=== PATIENT | male | born 1970 | race Hispanic/Latino ===

== ENCOUNTER 2016-12-11 09:00 | Emergency (ER) | payer MEDICAID ==
[2016-12-11 09:12] VITALS: BP 134/91
--- NOTE | 2016-12-11 11:51 | Emergency Department Report ---
HPI - General Chief Complaint: Skin/Abscess/Foreign Body Time Seen by Provider: 12/11/16 11:35 - HPI HPI: 46-year-old male presents to ED complaining of pain and swelling in his left nostril area 5 days. Patient states he noticed a small bump in his left nostril on . Patient states started and started a bomb got bigger and painful to touch and noticed some redness on it. Patient denies any fever/ chills/nausea/vomiting/abdominal pain/headache/cough/runny nose/nosebleed/ shortness of breath or chest pain or abdominal pain. ED Past Medical Hx - Past Medical History Hx Hypertension: Yes Hx Congestive Heart Failure: Yes Hx Diabetes: No Hx Asthma: No Hx COPD: Yes Hx HIV: No - Surgical History Hx Internal Defibrillator: Yes Hx Appendectomy: Yes Additional Surgical History: aortic valve replacment 03/23/14 - Social History Smoking Status: Current Every Day Smoker Substance Use Type: None - Medications Home Medications: Home Medications Medication Instructions Recorded Confirmed Last Taken Type Aspirin [Aspirin BABY CHEW TAB] 81 mg PO DAILY 03/30/14 11/13/16 11/13/16 History Amiodarone [Cordarone 200 MG TAB] 200 mg PO BID 11/13/16 11/13/16 11/13/16 History Furosemide [Lasix TAB] 40 mg PO QDAY 11/13/16 11/13/16 11/13/16 History Lisinopril [Zestril TAB] 5 mg PO QDAY 11/13/16 11/13/16 11/13/16 History Metoprolol [Lopressor TAB] 100 mg PO DAILY 11/13/16 11/13/16 11/13/16 History Potassium Chloride [Klor-Con 8] 8 meq PO DAILY 11/13/16 11/13/16 11/13/16 History HYDROcodone/APAP 5-325 [[place] 1 each PO Q4H PRN #10 tablet 11/16/16 Unknown Rx 5-325 mg TAB] Levofloxacin [Levaquin TAB] 500 mg PO QDAY #5 tablet 11/16/16 Unknown Rx metroNIDAZOLE [Flagyl] 500 mg PO Q12HR #10 tab 11/16/16 Unknown Rx Acetaminophen/Codeine [Tylenol 1 tab PO Q6H #10 tablet 12/11/16 Unknown Rx /Codeine # 3 tab] Cephalexin [Keflex] 500 mg PO Q12HR #14 cap 12/11/16 Unknown Rx ED Review of Systems ROS: Stated complaint: ABSCESS IN NOSE Other details as noted in HPI Constitutional: denies: chills, fever Eyes: denies: eye pain, eye discharge, vision change ENT: denies: ear pain, throat pain Respiratory: denies: cough, shortness of breath, wheezing Cardiovascular: denies: chest pain, palpitations Endocrine: no symptoms reported Gastrointestinal: denies: abdominal pain, nausea, vomiting, diarrhea, constipation, hematochezia Genitourinary: denies: urgency, dysuria, frequency, hematuria Musculoskeletal: denies: back pain, joint swelling, arthralgia Skin: denies: rash, lesions Neurological: denies: headache, weakness, paresthesias Psychiatric: denies: anxiety, depression Hematological/Lymphatic: denies: easy bleeding, easy bruising Physical Exam - Physical Exam Vital Signs: Vital Signs 12/11/16 09:09 Temperature 97.6 F Pulse Rate 85 Respiratory 17 Rate Blood Pressure 134/91 O2 Sat by Pulse 100 Oximetry Physical Exam: GENERAL: Alert and oriented x3, no apparent distress, Normal Gait, atraumatic. HEAD: Head is normocephalic and a-traumatic. EYES: Extra ocular muscles are intact. Pupils are equal, round, and reactive to light and accommodation. EARS: symetrical, atraumatic, non tender, ear canal clear and moderate cerumen, tympanic membrance non inflamed. gross auditory nml bilaterally. NOSE: Nose symetrical, Nontender,Nares appeared normal. Small erythematous bump below the left nostril between the upper lip and the nostril. Tender to palpation. Mild edema. No active drainage. MOUTH:Mouth is well hydrated and without lesions. Tonsils nonerythematous or swollen, Uvula midline, Tongue not elevated. Mucous membranes are moist. Posterior pharynx clear, no exudate or lesions. Patent airways. No dental tenderness NECK: Supple. Non edematous, No carotid bruits. No lymphadenopathy or thyromegaly. No C-spine tenderness LUNGS: Symetrical with respiration, No wheezing, no rales or crackles, CTAB. HEART: S1, S2 present, regular rate and rhythm without murmur, no rubs, no gallops. ABDOMEN: No organomegaly was noted,Positive bowel sounds, soft, and non- distended. . Nontender to palpation on all Quadrants, NO CVA tenderness. SKIN: Warm and dry, No lesions, No ulceration or induration present. ED Course Vital Signs 12/11/16 09:09 Temperature 97.6 F Pulse Rate 85 Respiratory 17 Rate Blood Pressure 134/91 O2 Sat by Pulse 100 Oximetry ED Medical Decision Making - Medical Decision Making 46-year-old male presents with cellulitis of the upper lid. ED course: Patient received Tylenol 3 ED. Discussed the patient did take medication antibiotic therapy as prescribed. he should take medication at home for pain. Discussed the patient follow up with primary care physician a 3-5 days. Vital signs are normal patient is in no acute distress. Patient verbally states he understands and will comply to follow-up. Critical care attestation.: If time is entered above; I have spent that time in minutes in the direct care of this critically ill patient, excluding procedure time. ED Disposition Clinical Impression: Cellulitis of nostril Cellulitis Qualifiers: Site of cellulitis: face Qualified Code(s): L03.211 - Cellulitis of face Disposition: DISCHARGED TO HOME OR SELFCARE Is pt being admited?: No Does the pt Need Aspirin: No Condition: Stable Instructions: Cellulitis (ED) Additional Instructions: Apply warm compresses to your cellulitis Take Motrin as initial pain. Follow-up which her primary care physician Prescriptions: Acetaminophen/Codeine [Tylenol /Codeine # 3 tab] 1 tab PO Q6H #10 tablet Cephalexin [Keflex] 500 mg PO Q12HR #14 cap Referrals: PRIMARY CARE, [Primary Care Provider] - 3-5 Days Forms: Accompanied Note, Work/School Release Form(ED) Time of Disposition: 12:07
[2016-12-11] MEDS ORDERED: TYLENOL #3 PO ONE (11:54)
== END 2016-12-11 12:39 | disposition home or self-care (01) ==
LOC: ED 09:00
DX: J34.0 Abscess, furuncle and carbuncle of nose (principal); L03.211 Cellulitis of face; I10 Essential (primary) hypertension; I50.9 Heart failure, unspecified; J44.9 Chronic obstructive pulmonary disease, unspecified; F17.200 Nicotine dependence, unspecified, uncomplicated; Z90.49 Acquired absence of other specified parts of digestive tract; Z79.82 Long term (current) use of aspirin
CPT/HCPCS: 99282

== ENCOUNTER 2017-02-20 03:20 | Emergency (ER) | payer MEDICAID ==
[2017-02-20 03:28] VITALS: BP 122/81
[2017-02-20] MEDS ORDERED: BOOSTRIX IM ONE (04:23)
[2017-02-20] MEDS ORDERED: MOTRIN PO ONE (04:23)
[2017-02-20] MEDS ORDERED: MARCAINE-EPI/PF 0.5%-1:200,000 INFILTRATI ONE (04:23)
--- NOTE | 2017-02-20 04:32 | Emergency Department Report ---
- General Chief complaint: Skin/Abscess/Foreign Body Stated complaint: ABCESS Time Seen by Provider: 02/20/17 04:06 Source: patient Mode of arrival: Ambulatory Limitations: No Limitations - History of Present Illness Initial comments: This is a 46-year-old male well-nourished with nontoxic or ill in appearance that presents to the ED complaining of a boil to the buttock area. Patient stated has these symptoms since Saturday (6 days ago). Associated symptoms includes pain that is described as aching with a level of 10/10. Patient denies any trauma. Denies chest pain, shortness of breath, pus, drainage, nausea, vomiting, fever, chills, stiff neck, headache. Patient denies any allergies. Past history of COPD, CHF, and hypertension. MD complaint: abscess/boil -: Gradual, days(s) (6) Tetanus Up to Date: no (as per patient) Location: buttocks Severity: moderate Severity scale (0 -10): 10 Quality: aching Consistency: constant Improves with: none Worsens with: none Associated symptoms: denies other symptoms Treatments Prior to Arrival: none - Related Data Home Medications Medication Instructions Recorded Confirmed Last Taken Aspirin [Aspirin BABY CHEW TAB] 81 mg PO DAILY 03/30/14 11/13/16 11/13/16 Amiodarone [Cordarone 200 MG TAB] 200 mg PO BID 11/13/16 11/13/16 11/13/16 Furosemide [Lasix TAB] 40 mg PO QDAY 11/13/16 11/13/16 11/13/16 Lisinopril [Zestril TAB] 5 mg PO QDAY 11/13/16 11/13/16 11/13/16 Metoprolol [Lopressor TAB] 100 mg PO DAILY 11/13/16 11/13/16 11/13/16 Potassium Chloride [Klor-Con 8] 8 meq PO DAILY 11/13/16 11/13/16 11/13/16 Previous Rx's Medication Instructions Recorded Last Taken Type HYDROcodone/APAP 5-325 [[place] 1 each PO Q4H PRN #10 tablet 11/16/16 Unknown Rx 5-325 mg TAB] Levofloxacin [Levaquin TAB] 500 mg PO QDAY #5 tablet 11/16/16 Unknown Rx metroNIDAZOLE [Flagyl] 500 mg PO Q12HR #10 tab 11/16/16 Unknown Rx Acetaminophen/Codeine [Tylenol 1 tab PO Q6H #10 tablet 12/11/16 Unknown Rx /Codeine # 3 tab] Cephalexin [Keflex] 500 mg PO Q12HR #14 cap 12/11/16 Unknown Rx Cephalexin [Keflex] 500 mg PO Q8HR 5 Days 02/20/17 Unknown Rx HYDROcodone/APAP 7.5-325 [[place] 1 each PO Q8HR PRN #8 tablet 02/20/17 Unknown Rx 7.5/325] Ibuprofen [Motrin 600 MG tab] 600 mg PO Q8H PRN #20 tablet 02/20/17 Unknown Rx Sulfamethoxazole/Trimethoprim 1 each PO BID 5 Days 02/20/17 Unknown Rx [Bactrim DS TAB] Allergies Allergy/AdvReac Type Severity Reaction Status Date / Time No Known Allergies Allergy Verified 12/11/16 09:12 Abscess Boil HPI - HPI Chief Complaint: Skin/Abscess/Foreign Body Stated Complaint: ABCESS Time Seen by Provider: 02/20/17 04:06 Home Medications: Home Medications Medication Instructions Recorded Confirmed Last Taken Aspirin [Aspirin BABY CHEW TAB] 81 mg PO DAILY 03/30/14 11/13/16 11/13/16 Amiodarone [Cordarone 200 MG TAB] 200 mg PO BID 11/13/16 11/13/16 11/13/16 Furosemide [Lasix TAB] 40 mg PO QDAY 11/13/16 11/13/16 11/13/16 Lisinopril [Zestril TAB] 5 mg PO QDAY 11/13/16 11/13/16 11/13/16 Metoprolol [Lopressor TAB] 100 mg PO DAILY 11/13/16 11/13/16 11/13/16 Potassium Chloride [Klor-Con 8] 8 meq PO DAILY 11/13/16 11/13/16 11/13/16 Previous Rx's Medication Instructions Recorded Last Taken Type HYDROcodone/APAP 5-325 [[place] 1 each PO Q4H PRN #10 tablet 11/16/16 Unknown Rx 5-325 mg TAB] Levofloxacin [Levaquin TAB] 500 mg PO QDAY #5 tablet 11/16/16 Unknown Rx metroNIDAZOLE [Flagyl] 500 mg PO Q12HR #10 tab 11/16/16 Unknown Rx Acetaminophen/Codeine [Tylenol 1 tab PO Q6H #10 tablet 12/11/16 Unknown Rx /Codeine # 3 tab] Cephalexin [Keflex] 500 mg PO Q12HR #14 cap 12/11/16 Unknown Rx Cephalexin [Keflex] 500 mg PO Q8HR 5 Days 02/20/17 Unknown Rx HYDROcodone/APAP 7.5-325 [[place] 1 each PO Q8HR PRN #8 tablet 02/20/17 Unknown Rx 7.5/325] Ibuprofen [Motrin 600 MG tab] 600 mg PO Q8H PRN #20 tablet 02/20/17 Unknown Rx Sulfamethoxazole/Trimethoprim 1 each PO BID 5 Days 02/20/17 Unknown Rx [Bactrim DS TAB] Allergies/Adverse Reactions: Allergies Allergy/AdvReac Type Severity Reaction Status Date / Time No Known Allergies Allergy Verified 12/11/16 09:12 ED Review of Systems ROS: Stated complaint: ABCESS Other details as noted in HPI Constitutional: denies: chills, fever Eyes: denies: eye pain, eye discharge, vision change ENT: denies: ear pain, throat pain Respiratory: denies: cough, shortness of breath, wheezing Cardiovascular: denies: chest pain, palpitations Endocrine: no symptoms reported Gastrointestinal: denies: abdominal pain, nausea, diarrhea Genitourinary: denies: urgency, dysuria Musculoskeletal: denies: back pain, joint swelling, arthralgia Skin: denies: rash, lesions Neurological: denies: headache, weakness, paresthesias Psychiatric: denies: anxiety, depression Hematological/Lymphatic: denies: easy bleeding, easy bruising ED Past Medical Hx - Past Medical History Previous Medical History?: Yes Hx Hypertension: Yes Hx Congestive Heart Failure: Yes Hx Diabetes: No Hx Asthma: No Hx COPD: Yes Hx HIV: No - Surgical History Past Surgical History?: Yes Hx Internal Defibrillator: Yes Hx Appendectomy: Yes Additional Surgical History: aortic valve replacment 03/23/14 - Social History Smoking Status: Current Every Day Smoker Substance Use Type: None - Medications Home Medications: Home Medications Medication Instructions Recorded Confirmed Last Taken Type Aspirin [Aspirin BABY CHEW TAB] 81 mg PO DAILY 03/30/14 11/13/16 11/13/16 History Amiodarone [Cordarone 200 MG TAB] 200 mg PO BID 11/13/16 11/13/16 11/13/16 History Furosemide [Lasix TAB] 40 mg PO QDAY 11/13/16 11/13/16 11/13/16 History Lisinopril [Zestril TAB] 5 mg PO QDAY 11/13/16 11/13/16 11/13/16 History Metoprolol [Lopressor TAB] 100 mg PO DAILY 11/13/16 11/13/16 11/13/16 History Potassium Chloride [Klor-Con 8] 8 meq PO DAILY 11/13/16 11/13/16 11/13/16 History HYDROcodone/APAP 5-325 [[place] 1 each PO Q4H PRN #10 tablet 11/16/16 Unknown Rx 5-325 mg TAB] Levofloxacin [Levaquin TAB] 500 mg PO QDAY #5 tablet 11/16/16 Unknown Rx metroNIDAZOLE [Flagyl] 500 mg PO Q12HR #10 tab 11/16/16 Unknown Rx Acetaminophen/Codeine [Tylenol 1 tab PO Q6H #10 tablet 12/11/16 Unknown Rx /Codeine # 3 tab] Cephalexin [Keflex] 500 mg PO Q12HR #14 cap 12/11/16 Unknown Rx Cephalexin [Keflex] 500 mg PO Q8HR 5 Days 02/20/17 Unknown Rx HYDROcodone/APAP 7.5-325 [[place] 1 each PO Q8HR PRN #8 tablet 02/20/17 Unknown Rx 7.5/325] Ibuprofen [Motrin 600 MG tab] 600 mg PO Q8H PRN #20 tablet 02/20/17 Unknown Rx Sulfamethoxazole/Trimethoprim 1 each PO BID 5 Days 02/20/17 Unknown Rx [Bactrim DS TAB] ED Physical Exam - General Limitations: No Limitations General appearance: alert, in no apparent distress - Head Head exam: Present: atraumatic, normocephalic, normal inspection - Eye Eye exam: Present: normal appearance, PERRL, EOMI. Absent: scleral icterus, conjunctival injection, nystagmus, periorbital swelling, periorbital tenderness Pupils: Present: normal accommodation - ENT ENT exam: Present: normal exam, normal orophraynx, mucous membranes moist, TM's normal bilaterally, normal external ear exam - Neck Neck exam: Present: normal inspection, full ROM. Absent: tenderness, meningismus, lymphadenopathy, thyromegaly - Respiratory Respiratory exam: Present: normal lung sounds bilaterally. Absent: respiratory distress, wheezes, rales, rhonchi, stridor, chest wall tenderness, accessory muscle use, decreased breath sounds, prolonged expiratory - Cardiovascular Cardiovascular Exam: Present: regular rate, normal rhythm, normal heart sounds. Absent: bradycardia, tachycardia, irregular rhythm, systolic murmur, diastolic murmur, rubs, gallop - GI/Abdominal GI/Abdominal exam: Present: soft, normal bowel sounds. Absent: distended, tenderness, guarding, rebound, rigid, diminished bowel sounds - Rectal Rectal exam: Present: deferred - Extremities Exam Extremities exam: Present: normal inspection, full ROM, normal capillary refill. Absent: tenderness, pedal edema, joint swelling, calf tenderness - Back Exam Back exam: Present: normal inspection, full ROM. Absent: tenderness, CVA tenderness (R), CVA tenderness (L), muscle spasm, paraspinal tenderness, vertebral tenderness, rash noted - Neurological Exam Neurological exam: Present: alert, oriented X3, CN II-XII intact, normal gait, reflexes normal - Psychiatric Psychiatric exam: Present: normal affect, normal mood - Skin Skin exam: Present: warm, dry, intact, normal color. Absent: rash - Other Other exam information: 3 cm abscess to upper left buttock area. Tender to touch. Fluctuance present. No pus or drainage noted. No surrounding erythema or surrounding cellulitis. ED Course Vital Signs 02/20/17 03:25 Temperature 97.7 F Pulse Rate 89 Blood Pressure 122/81 O2 Sat by Pulse 98 Oximetry - Reevaluation(s) Reevaluation #1: 02/20/17 04:33 Patient is talking in full sentences with no signs of distress noted. - I & D Left Medial Buttocks Type of Procedure: Complex Site: left medial buttock region Blade Size: 11 I & D Procedure: betadine prep, sterile drapes applied, sterile dressing applied Progress: Under sterile procedure, I used Betadine to cleanse the area. I then used 4 x 4 to try and clean the area. I used 25-gauge 5/8 hypo-to inject 0.5% Marcaine with epi 1-200,000 with total volume of 6 mL. I then used Betadine again cleansed area. I then used an 11 blade to make a decision of 1 cm to the site. About 1 mL of purulent drainage noted. I then used a hemostat to break down the abscess. I used 0.9% saline to flush the area with a total cc of 20. I then used one fourth iodoform packing. A sterile 4 x 4 with tape has in place as dressing. Patient's are well with no acute signs of distress or complications noted. ED Medical Decision Making - Medical Decision Making Patient was examined myself. Patient tolerated I&D with no signs of distress noted. Packing has been placed. Patient was instructed to return in 48 hours for packing removal and reassessment of the wound. Patient will be treated with Keflex and Bactrim at discharge. Patient was instructed to return to follow-up with the primary care doctor in 3-5 days or if symptoms such as increased swelling, pain, or worsening symptoms return to emergency room as was possible. Critical care attestation.: If time is entered above; I have spent that time in minutes in the direct care of this critically ill patient, excluding procedure time. ED Disposition Clinical Impression: Abscess Disposition: TO HOME OR SELFCARE Is pt being admited?: No Does the pt Need Aspirin: No Condition: Stable Instructions: Cephalexin (By mouth), Ibuprofen (By mouth), Abscess Incision and Drainage (ED), Acute Wound Care (ED), Abscess (ED) Additional Instructions: follow-up with the primary care doctor in 3-5 days or if symptoms such as increased swelling, pain, or worsening symptoms return to emergency room as was possible. Return in 48 hours for packing removal and reassessment of wound. Take full course of antibiotics as prescribed. If pain is not relieved with ibuprofen may take [place] as prescribed. Do not operate any machinery while taking [place] due to sedation/drowsiness. Prescriptions: Cephalexin [Keflex] 500 mg PO Q8HR 5 Days HYDROcodone/APAP 7.5-325 [[place] 7.5/325] 1 each PO Q8HR PRN #8 tablet PRN Reason: Pain Ibuprofen [Motrin 600 MG tab] 600 mg PO Q8H PRN #20 tablet PRN Reason: Pain Sulfamethoxazole/Trimethoprim [Bactrim DS TAB] 1 each PO BID 5 Days Referrals: PRIMARY CARE, [Primary Care Provider] - 3-5 Days JOSE CONNOR JR, MD [Staff Physician] - 3-5 Days [facility] [Outside] - 3-5 Days [facility] [place] [Outside] - 3-5 Days Forms: Work/School Release Form(ED)
[2017-02-20] MEDS ORDERED: MARCAINE 0.5% INFILTRATI ONE (05:36)
== END 2017-02-20 06:18 | disposition home or self-care (01) ==
LOC: ED 03:20
DX: L02.31 Cutaneous abscess of buttock (principal); I11.0 Hypertensive heart disease with heart failure; I50.9 Heart failure, unspecified; J44.9 Chronic obstructive pulmonary disease, unspecified; F17.210 Nicotine dependence, cigarettes, uncomplicated; Z79.82 Long term (current) use of aspirin; Z95.0 Presence of cardiac pacemaker
CPT/HCPCS: 90471; 90715; 99282

== ENCOUNTER 2018-05-08 10:19 | Emergency (ER) | payer MEDICAID ==
--- NOTE | 2018-05-08 10:59 | XRay Report ---
ROUTINE CHEST, TWO VIEWS: HISTORY: Shortness of breath. Cardiac surgery changes and single lead pacemaker device are unchanged. Heart size and pulmonary vascularity are within normal limits. There is pleural thickening or loculated fluid near the apex of the right lung measuring up to 1.7 cm in thickness. This is unchanged since 04/20/18. No evidence for pneumonia or pneumothorax. IMPRESSION: No acute cardiopulmonary process identified. Loculated fluid or chronic pleural thickening at the right apex which is unchanged.
[2018-05-08] MEDS ORDERED: SOLU-Medrol IV ONE (11:06)
[2018-05-08] MEDS ORDERED: LEVAQUIN 750MG/150ML 750 MG/150 ML BAG IV ONE (11:06)
[2018-05-08] MEDS ORDERED: ATROVENT IH ONE (11:06)
[2018-05-08] MEDS ORDERED: PROVENTIL IH ONE (11:06)
[2018-05-08 11:07] LABS: Basophils # (Auto) 0.1 K/mm3 (0.0-0.1); Eosinophils # (Auto) 0.5 K/mm3 (0.0-0.4); Eosinophils % (Auto) 6.8 % (0.0-4.3); Hematocrit 50.6 % (35.5-45.6); Hemoglobin 16.9 gm/dl (11.8-15.2); Lymphocytes # (Auto) 2.4 K/mm3 (1.2-5.4); Lymphocytes % (Auto) 32.1 % (13.4-35.0); Mean Corpuscular HGB Conc 34 % (32-34); Mean Corpuscular Hemoglobin 29 pg (28-32); Mean Corpuscular Volume 86 fl (84-94); Monocytes # (Auto) 0.8 K/mm3 (0.0-0.8); Monocytes % (Auto) 10.5 % (0.0-7.3); Platelet Count 335 K/mm3 (140-440); Red Cell Distribution Width 14.5 % (13.2-15.2)
[2018-05-08 11:17] LABS: INR 1.04 (0.87-1.13)
--- NOTE | 2018-05-08 11:18 | Emergency Department Report ---
ED Shortness of Breath HPI - General Chief Complaint: Dyspnea/Respdistress Stated Complaint: SOB Time Seen by Provider: 05/08/18 10:43 Source: patient, family Mode of arrival: Ambulatory Limitations: No Limitations - History of Present Illness Initial Comments: 47-year-old male with past medical history emphysema, CHF, COPD, hypertension, AICD, and aortic valve replacement in 2013 presents to the Hospital complains of cough, shortness of breath, and generalized weakness progressive worsening since May 05. Patient with treatment here early April and discharged on 04/21 for bilateral pneumonia, emphysema, and presented with altered mental status and shortness of breath requiring intubation. Patient was feeling good until he cleaned his mold containing back porch prior to symptom onset. Cough is productive of yellow sputum. No fever, calf tenderness, or leg edema or cording. Patient complains of chest pain with breathing. He went to Dr. Rebolledo's office (molded goods operator) prior to arrival and was sent to the ER based on his symptoms and without M.D. evaluation. Despite having COPD patient denies home oxygen use, neck, or inhaler treatment. - Related Data Home Medications Medication Instructions Recorded Confirmed Last Taken Aspirin [Aspirin BABY CHEW TAB] 81 mg PO DAILY 03/30/14 05/08/18 1 Week Ago ~05/01/18 Furosemide [Lasix TAB] 40 mg PO QDAY 11/13/16 05/08/18 1 Week Ago ~05/01/18 Lisinopril [Zestril TAB] 10 mg PO QDAY 11/13/16 05/08/18 1 Week Ago ~05/01/18 Potassium Chloride [Klor-Con 8] 8 meq PO DAILY 11/13/16 05/08/18 1 Week Ago ~05/01/18 Previous Rx's Medication Instructions Recorded Last Taken Type levoFLOXacin [Levaquin] 750 mg PO QDAY #7 tablet 04/21/18 1 Week Ago Rx ~05/01/18 Albuterol Sulfate [Ventolin HFA] 2 puff IH Q4H PRN #1 hfa.aer.ad 05/08/18 Unknown Rx Azithromycin [Zithromax Z-IDALIA] 1 dose PO DAILY 5 Days tab 05/08/18 Unknown Rx Benzonatate [Tessalon Perles] 100 mg PO Q8HR #30 capsule 05/08/18 Unknown Rx predniSONE [Deltasone] 40 mg PO QDAY 5 Days tab 05/08/18 Unknown Rx Allergies Allergy/AdvReac Type Severity Reaction Status Date / Time No Known Allergies Allergy Verified 12/11/16 09:12 ED Review of Systems ROS: Stated complaint: SOB Other details as noted in HPI Comment: All other systems reviewed and negative ED Past Medical Hx - Past Medical History Previous Medical History?: Yes Hx Hypertension: Yes Hx Congestive Heart Failure: Yes Hx Diabetes: No Hx Asthma: No Hx COPD: Yes Hx HIV: No Additional medical history: emphysema - Surgical History Past Surgical History?: Yes Hx Internal Defibrillator: Yes Hx Appendectomy: Yes Additional Surgical History: aortic valve replacment 03/23/14 - Social History Smoking Status: Current Every Day Smoker Substance Use Type: None - Medications Home Medications: Home Medications Medication Instructions Recorded Confirmed Last Taken Type Aspirin [Aspirin BABY CHEW TAB] 81 mg PO DAILY 03/30/14 05/08/18 1 Week Ago History ~05/01/18 Furosemide [Lasix TAB] 40 mg PO QDAY 11/13/16 05/08/18 1 Week Ago History ~05/01/18 Lisinopril [Zestril TAB] 10 mg PO QDAY 11/13/16 05/08/18 1 Week Ago History ~05/01/18 Potassium Chloride [Klor-Con 8] 8 meq PO DAILY 11/13/16 05/08/18 1 Week Ago History ~05/01/18 levoFLOXacin [Levaquin] 750 mg PO QDAY #7 tablet 04/21/18 05/08/18 1 Week Ago Rx ~05/01/18 Albuterol Sulfate [Ventolin HFA] 2 puff IH Q4H PRN #1 hfa.aer.ad 05/08/18 Unknown Rx Azithromycin [Zithromax Z-IDALIA] 1 dose PO DAILY 5 Days tab 05/08/18 Unknown Rx Benzonatate [Tessalon Perles] 100 mg PO Q8HR #30 capsule 05/08/18 Unknown Rx predniSONE [Deltasone] 40 mg PO QDAY 5 Days tab 05/08/18 Unknown Rx ED Physical Exam - General Limitations: No Limitations - Other Other exam information: General: No limitations, patient is alert in no acute distress Head exam: Atraumatic, normocephalic Eyes exam: Normal appearance, pupils equal reactive to light, extraocular movements intact ENT: Moist mucous membrane, normal oropharynx Neck exam: Normal inspection, full range of motion, no meningismus nontender Respiratory exam: Mild expiratory wheezing on the right lung greater than the left. No tachypnea or accessory muscle use. Frequent coughing Cardiovascular: Normal rate and rhythm, normal heart sounds Abdomen: Soft, nondistended, and nontender, with normal bowel sounds, no rebound, or guarding Extremity: Full range of motion normal inspection no deformity, no calf tenderness or edema Back: Normal Inspection, full range of motion, no tenderness Neurologic: Alert, oriented x3, cranial nerves intact, no motor or sensory deficit Psychiatric: normal affect, normal mood Skin: Warm, dry, intact ED Course Vital Signs 05/08/18 05/08/18 05/08/18 10:24 11:13 11:16 Temperature 98.1 F Pulse Rate 46 L 83 Respiratory 18 16 Rate Blood Pressure 123/91 118/87 O2 Sat by Pulse 96 99 98 Oximetry 05/08/18 05/08/18 11:30 13:37 Temperature Pulse Rate 91 H Respiratory 15 20 Rate Blood Pressure 127/96 O2 Sat by Pulse 100 99 Oximetry - Reevaluation(s) Reevaluation #1: 05/08/18 14:04 Patient feels much better after eating treatment with nebs and steroids. Tolerating ambulation around the ED without difficulty. Dr. Rothman came to ER to evaluate patient. Patient actually is scheduled to see Dr. Hennessy in office. Outpatient follow-up recommended - Consultations Consultation #1: 05/08/18 14:05 Dr Rothman spoke to pt in ED ED Medical Decision Making - Lab Data Result diagrams: 05/08/18 10:50 05/08/18 10:50 Lab Results 05/08/18 05/08/18 05/08/18 Range/Units 10:50 10:50 10:50 WBC 7.4 (4.5-11.0) K/mm3 RBC 5.90 H (3.65-5.03) M/mm3 Hgb 16.9 H (11.8-15.2) gm/dl Hct 50.6 H (35.5-45.6) % MCV 86 (84-94) fl MCH 29 (28-32) pg MCHC 34 (32-34) % RDW 14.5 (13.2-15.2) % Plt Count 335 (140-440) K/mm3 Lymph % (Auto) 32.1 (13.4-35.0) % Henderson % (Auto) 10.5 H (0.0-7.3) % Eos % (Auto) 6.8 H (0.0-4.3) % Baso % (Auto) 1.0 (0.0-1.8) % Lymph # 2.4 (1.2-5.4) K/mm3 Henderson # 0.8 (0.0-0.8) K/mm3 Eos # 0.5 H (0.0-0.4) K/mm3 Baso # 0.1 (0.0-0.1) K/mm3 Seg Neutrophils % 49.6 (40.0-70.0) % Seg Neutrophils # 3.7 (1.8-7.7) K/mm3 PT (12.2-14.9) Sec. INR (0.87-1.13) Sodium 138 (137-145) mmol/L Potassium 4.9 (3.6-5.0) mmol/L Chloride 101.2 (98-107) mmol/L Carbon Dioxide 26 (22-30) mmol/L Anion Gap 16 mmol/L BUN 8 L (9-20) mg/dL Creatinine 1.0 (0.8-1.5) mg/dL Estimated GFR > 60 ml/min BUN/Creatinine Ratio 8 % Glucose 90 (75-100) mg/dL Calcium 9.4 (8.4-10.2) mg/dL Troponin T < 0.010 (0.00-0.029) ng/mL NT-Pro-B Natriuret Pep 1368 H (0-450) pg/mL 05/08/18 Range/Units 10:50 WBC (4.5-11.0) K/mm3 RBC (3.65-5.03) M/mm3 Hgb (11.8-15.2) gm/dl Hct (35.5-45.6) % MCV (84-94) fl MCH (28-32) pg MCHC (32-34) % RDW (13.2-15.2) % Plt Count (140-440) K/mm3 Lymph % (Auto) (13.4-35.0) % Henderson % (Auto) (0.0-7.3) % Eos % (Auto) (0.0-4.3) % Baso % (Auto) (0.0-1.8) % Lymph # (1.2-5.4) K/mm3 Henderson # (0.0-0.8) K/mm3 Eos # (0.0-0.4) K/mm3 Baso # (0.0-0.1) K/mm3 Seg Neutrophils % (40.0-70.0) % Seg Neutrophils # (1.8-7.7) K/mm3 PT 14.1 (12.2-14.9) Sec. INR 1.04 (0.87-1.13) Sodium (137-145) mmol/L Potassium (3.6-5.0) mmol/L Chloride (98-107) mmol/L Carbon Dioxide (22-30) mmol/L Anion Gap mmol/L BUN (9-20) mg/dL Creatinine (0.8-1.5) mg/dL Estimated GFR ml/min BUN/Creatinine Ratio % Glucose (75-100) mg/dL Calcium (8.4-10.2) mg/dL Troponin T (0.00-0.029) ng/mL NT-Pro-B Natriuret Pep (0-450) pg/mL - Radiology Data Radiology results: report reviewed ROUTINE CHEST, TWO VIEWS: HISTORY: Shortness of breath. Cardiac surgery changes and single lead pacemaker device are unchanged. Heart size and pulmonary vascularity are within normal limits. There is pleural thickening or loculated fluid near the apex of the right lung measuring up to 1.7 cm in thickness. This is unchanged since 04/20/18. No evidence for pneumonia or pneumothorax. IMPRESSION : No acute cardiopulmonary process identified. Loculated fluid or chronic pleural thickening at the right apex which is unchanged. - Medical Decision Making Patient presents to the hospital with COPD exacerbation much improved with nebulized treatments and Solu-Medrol. Levaquin IV providing any ED for infectious symptoms. No infiltrate identified on chest x-ray. Patient discharged home with COPD treatment with antibiotic and to encourage pulmonology outpatient follow-up. There is no infiltrate is identified Z-Idalia will be prescribed as opposed to Levaquin - Differential Diagnosis pneumonia, bronchitis, COPD, AK, PE, pneumothorax Critical Care Time: No Critical care attestation.: If time is entered above; I have spent that time in minutes in the direct care of this critically ill patient, excluding procedure time. ED Disposition Clinical Impression: COPD exacerbation Disposition: DC-01 TO HOME OR SELFCARE Is pt being admited?: No Does the pt Need Aspirin: No Condition: Stable Instructions: Chronic Obstructive Pulmonary Disease (ED) Additional Instructions: Take the medication as prescribed. Follow up with the molded goods operator. Return if symptoms worsen as indicated by your discharge instructions Prescriptions: Albuterol Sulfate [Ventolin HFA] 2 puff IH Q4H PRN #1 hfa.aer.ad PRN Reason: Shortness Of Breath Azithromycin [Zithromax Z-IDALIA] 1 dose PO DAILY 5 Days tab Benzonatate [Tessalon Perles] 100 mg PO Q8HR #30 capsule predniSONE [Deltasone] 40 mg PO QDAY 5 Days tab Referrals: SABI PICKETT MD [Staff Physician] - 3-5 Days Time of Disposition: 14:10
[2018-05-08 11:30] LABS: BUN/Creatinine Ratio 8; Blood Urea Nitrogen 8 mg/dL (9-20); Calcium 9.4 mg/dL (8.4-10.2); Hemolysis Index 10
[2018-05-08] MEDS ORDERED: TESSALON PERLES PO ONE (13:07)
[2018-05-08 14:49] VITALS: BP 133/91
== END 2018-05-08 14:10 | disposition home or self-care (01) ==
LOC: ED 10:19
DX: J44.1 Chronic obstructive pulmonary disease with (acute) exacerbation (principal); I11.0 Hypertensive heart disease with heart failure; F17.200 Nicotine dependence, unspecified, uncomplicated; Z90.49 Acquired absence of other specified parts of digestive tract; Z79.82 Long term (current) use of aspirin
CPT/HCPCS: 36415; 71046; 80048; 83880; 84484; 85025; 85610; 87040; 93005; 93010; 94640; 96365; 96366; 96375; 99284; J1956; J2930